=== PATIENT | male | born 1950 | race Caucasian/White ===

== ENCOUNTER 2018-03-19 01:00 | Day surgery (SDC) | payer MEDICARE, OTHER ==
[~2018-03-19] VITALS: Ht 175.3 cm; Wt 77.1 kg
[~2018-03-19 01:00] MED LIST: ACET500T68 PO; ASPI-1471 PO; DAR100 PO; DOCU-225 PO; KETO10TA PO; OXYC-373 PO; PER PO
[2018-03-19 06:18] VITALS: BP 145/90
[2018-03-19] MEDS ORDERED: ceFAZolin(*) 2GM/D5W 50ML 50 ML IVPB ONE (06:45)
[2018-03-19] MEDS ORDERED: MIDAZOLAM 2 MG/2 ML VIAL IVP PRN (06:45)
[2018-03-19] MEDS ORDERED: LIDOCAINE/SOD BICARB 8.4% SYR ID ONE (06:45)
[2018-03-19] MEDS ORDERED: NORMOSOL R SOLN(*) 1000 ML BAG 1,000 ML IV PRN (06:45)
[2018-03-19] MEDS ORDERED: FAMOTIDINE 20 MG TAB PO ONE (06:45)
[2018-03-19 06:46] LABS: PLATELET COUNT, AUTOMATED 234 K/uL (150-450)
[2018-03-19] MEDS ORDERED: SUGAMMADEX SOD 200 MG/2 ML SDV ONE (06:57)
[2018-03-19] MEDS ORDERED: ONDANSETRON 4 MG/2 ML VIAL ONE (06:57)
[2018-03-19] MEDS ORDERED: LIDOCAINE MPF 1% 5 ML VIAL ONE (06:57)
[2018-03-19] MEDS ORDERED: fentaNYL CITR 250 MCG/5 ML AMP ONE (06:57)
[2018-03-19] MEDS ORDERED: ROCURONIUM BROM 10 MG/ML 10 ML ONE (06:57)
[2018-03-19] MEDS ORDERED: PROPOFOL EMUL(*) 10MG/ML 20 ML 20 ML ONE (06:57)
[2018-03-19] MEDS ORDERED: DEXAMETHASONE SOD 4 MG/ML VIAL ONE (06:57)
[2018-03-19] MEDS ORDERED: KETAMINE HCL 200 MG/20 ML MDV ONE (07:00)
[2018-03-19] MEDS ORDERED: ROPIVACAINE 0.5% 20 ML VIAL ONE (07:19)
[2018-03-19] MEDS ORDERED: GLYCOPYRROLATE 0.2MG/ML 1 ML INJ ONE (07:45)
[2018-03-19] MEDS ORDERED: DOCU-416 PO (09:28)
[2018-03-19] MEDS ORDERED: OXYC-854 PO (09:28)
--- NOTE | 2018-03-19 09:32 | Short(Outpt) Discharge Summary ---
Discharge Summary Reason for Hosp/Final Diag: (1) Right inguinal hernia Status: Chronic Hospital Course & Plan: Robotic RIH repair completed without problems. Departure Discharge to: Home, Self Care Discharge Instructions Home Meds Active Scripts Docusate Sodium (COLACE) 100 Mg Capsule, 1 CAP PO BID, #30 CAP 0 Refills TAKE WITH A FULL GLASS OF WATER Prov:ARIS LAURENT MD 03/19/18 Oxycodone Hcl/Acet 5/325 Mg (ENDOCET 5-325 TABLET) 1 Each Tablet, 1-2 TAB PO Q4H Y for PAIN, #30 TAB 0 Refills Prov:ARIS LAURENT MD 03/19/18 Reported Medications Aspirin (ASPIR 81) 81 Mg Tablet., 81 MG PO QDAY, TAB 02/16/18 Follow up Referrals: General Surgery - 04/07/18 @ Surgery, General with Sergey Melton Md You have a follow up appointment scheduled with Dr. Laurent on 04/07/18, at 11: 00am. Diet: Regular Activity: No Heavy Lifting Special Instructions: You may remove the white surgical dressings on 03/21/18, then you can shower. After showering, leave the incisions open to air but leave the steristrips in place until they fall off on their own. Do not immerse the incisions for 2 weeks. Avoid any activity that involves straining or lifting more than 10 pounds for 2 weeks after surgery. ARIS LAURENT MD Mar 19, 2018 09:31
--- NOTE | 2018-03-19 09:38 | Post Operative Progress Note ---
Post Operative Progress Note Date: Mar 19, 2018 Time: 09:32 Surgeon: Maryjane Dictation number: [id number] Anesthesia: GETA by Dr. Farmer Pre-Op Diagnosis: RIH Post-Op Diagnosis: ALEXY Findings: Indirect RIH, no hernia on left Procedure(s): Robotic RIH repair Specimen Removed:(May be N/A): None Complications: None Fluids: See anesthesia record Estimated Blood Loss: Minimal Date OP Note Dictated: Mar 19, 2018 Time OP Note Dictated: 09:32 ARIS LAURENT MD Mar 19, 2018 09:38
[2018-03-19] MEDS ORDERED: fentaNYL CITR 100 MCG/2 ML AMP ONE ×2 (09:41→10:21)
[2018-03-19 10:48] VITALS: BP 142/97
[2018-03-19 11:03] VITALS: BP 130/86
[2018-03-19 11:45] VITALS: BP 135/78
[2018-03-19 11:47] VITALS: BP 134/75
--- NOTE | 2018-03-19 12:16 | OPERATIVE REPORT 1 ---
EVENT DATE: March 19, 2018 SURGEON: Kushal Wesley M.D. ANESTHESIOLOGIST: Mino Baker M.D. ANESTHESIA: General endotracheal PREOPERATIVE DIAGNOSIS Right inguinal hernia. POSTOPERATIVE DIAGNOSIS Right inguinal hernia. PROCEDURE PERFORMED Robotic right inguinal hernia repair with mesh. ESTIMATED BLOOD LOSS Minimal. COMPLICATIONS None. CONDITION Stable. FINDINGS The patient had an indirect right inguinal hernia repair. There was no direct component and no left inguinal hernia. INDICATIONS This is a 67-year-old gentleman who presented to my office with a right groin bulge that was getting bigger and causing him discomfort. He was requesting to have it repaired. He consented for robotic right inguinal hernia repair. DESCRIPTION OF PROCEDURE The patient was brought to the operating room, placed supine on the operating table. General endotracheal anesthesia was administered and his abdomen was prepped and draped in sterile fashion. Time out was completed, and I anesthetized the left subcostal skin with 0.5% ropivacaine plain and made an 8 mm transverse incision in this area and then used the Veress needle and accessed the peritoneal cavity and insufflated the peritoneal cavity to a pressure of 15 mmHg. I then used an 8 mm robotic optical trocar and inserted the port using the 5 mm camera to guide myself through the fascial planes and then insufflated the peritoneal cavity and this was done without any problems. A camera was inserted into the port and I looked around and there was no evidence of any entry related injuries. He had some adhesions in the left lower quadrant that concealed whether there was a left inguinal hernia but the right inguinal hernia was clear and it was consistent with an indirect inguinal hernia. I then placed an 8 mm port in the right subcostal area and another 8 mm port in the epigastric midline. I inserted the right sided large piece of ProGrip mesh into the peritoneal cavity as well as a V-Loc suture and then the patient was placed in Trendelenburg and the robot was docked and targeted. The instruments were inserted and I scrubbed out and went to the console and then took down adhesions of the left lower quadrant and identified where the gonadal vessels and the vas deferens went through the internal ring and there was no evidence for hernia on the left. I then turned all of my attention to the right abdomen, divided the peritoneum and medial to anterior superior iliac spine all the way through midline and stripped the peritoneum down all the way down until I could identify the right pubic tubercle and Reese's ligament as well as well as all the way down through iliopubic tract and inferior to this. The indirect sac was identified and stripped away from the cord structures and there was also cord lipoma, which was reduced. Once the sac was completely from the cord structures well away from where they splayed and they had a nice big space opened up, I deployed the right sided ProGrip mesh into the space, unfurled it and then made sure it laid flat and covered the whole myopectineal orifice with several cm of generous overlap on all sides. I made sure it laid flat and then the hernia sac and cord lipoma laid on top of the mesh so that the mesh was between the defect and the structures. I then closed the peritoneum with a running absorbable V-Loc suture. There were a couple of small holes in the sac but I closed from the peritoneal side with 3-0 Vicryl [id number] suture and then I balled up the sac and sutured it into a balled up configuration with the same 3-0 Vicryl suture. I then inspected this area and everything looked great. There is no evidence of entry related injuries or other complications. There is no bleeding. The instruments were removed, the robot undocked, the abdomen desufflated and I removed the ports. I closed the skin of each port site with4-0 Monocryl subcuticular sutures. Skin was cleaned, dried, and Steri-Strips were applied followed by sterile surgical dressings. The patient was awakened and extubated in the operating room and transported to the recovery room in stable condition, having tolerated the procedure without any apparent problems. KERA
== END 2018-03-19 10:48 | disposition home or self-care (01) ==
LOC: OR 01:00
PROVIDERS: ATTEND Surgery
DX: K40.90 Unilateral inguinal hernia, without obstruction or gangrene, not specified as recurrent (principal)
CPT/HCPCS: 36415; 49650; 85025; A9270; C1781; J1100; J2001; J2405; J2704; J2795; J3010; J3490; S2900; J0690